=== PATIENT | female | born 1995 | race Caucasian/White ===

== ENCOUNTER 2023-02-22 20:54 | Emergency (ER) | payer MEDICAID ==
[~2023-02-22] VITALS: Ht 170.2 cm; Wt 115.9 kg
[2023-02-22 21:04] VITALS: BP 148/70
--- NOTE | 2023-02-22 21:46 | NUR ---
lab was drawing pt and she had a vasovagal response. Pale, taken to room 4
[2023-02-22 22:27] LABS: ALANINE AMINOTRANSFERASE 25 U/L (12-78); ALBUMIN 3.2 G/DL (3.4-5.0); ALBUMIN/GLOBULIN RATIO 0.8 (1.1-1.5); ALKALINE PHOSPHATASE 58 IU/L (46-116); ANION GAP 8 (8-16); ASPARTATE AMINO TRANSFERASE 21 U/L (10-37); BILIRUBIN,TOTAL 0.3 MG/DL (0.1-1.0); BLOOD UREA NITROGEN 11 MG/DL (7-18); BUN/CREATININE RATIO 10.8 (10.0-20.0); CALCIUM 8.6 MG/DL (8.5-10.1); CHLORIDE 100 MMOL/L (99-107); CREATININE 1.02 MG/DL (0.40-0.90); GLUCOSE 109 MG/DL (70-104); POTASSIUM 3.9 MMOL/L (3.5-5.1); SODIUM 134 MMOL/L (135-145); TOTAL CARBON DIOXIDE 25.8 MMOL/L (24-32); TOTAL PROTEIN 7.4 G/DL (6.4-8.2); eGFR 65 ML/MIN
[2023-02-22] MEDS ORDERED: normal saline 1000ml 1,000 ML IV ONE (22:35)
[2023-02-22 22:37] LABS: BASOPHILS % (AUTO) 0.3 % (0-1); EOSINOPHILS % (AUTO) 0 % (0-6); LYMPHOCYTES # (AUTO) 1.1 X10'3 (1.1-4.8); LYMPHOCYTES % (AUTO) 11.9 % (21-51); MEAN CORPUSCULAR HEMOGLOBIN 28.4 PG (27.0-31.0); MEAN CORPUSCULAR HGB CONC 33.3 g/dL (33.0-36.5); MEAN CORPUSCULAR VOLUME 85.4 FL (78-98); MEAN PLATELET VOLUME 8.6 FL (7.4-10.4); MONOCYTES # (AUTO) 0.9 X10'3 (0-0.9); MONOCYTES % (AUTO) 9.7 % (2-12); NEUTROPHILS # (AUTO) 7.2 X10'3 (1.8-7.7); NEUTROPHILS % (AUTO) 78.1 % (42-75); PLATELET COUNT 165 X10'3 (140-440); RED BLOOD COUNT 4.22 X10'6 (4.20-5.60); RED CELL DISTRIBUTION WIDTH 13.3 % (11.5-14.5); WHITE BLOOD COUNT 9.2 X10'3 (4.5-11.0)
[2023-02-22 23:03] LABS: BETA HCG,QUANTITATIVE < 1.0 mIU/ml
[2023-02-22] MEDS ORDERED: acetaminophen 325mg tablet PO ONE (23:05)
[2023-02-22] MEDS ORDERED: ketorolac trometh. 30mg/ml inj. IV ONE (23:05)
[2023-02-22] MEDS ORDERED: albuterol 2.5 MG/3 ML nebule NEB ONE (23:05)
[2023-02-22] MEDS ORDERED: ondansetron/PF 4mg/2ml inj IV ONE (23:10)
[2023-02-22 23:24] LABS: LIPASE 80 U/L (73-393)
[2023-02-22] MEDS ORDERED: AZIT-83 PO (23:53)
[2023-02-22] MEDS ORDERED: azithromycin 250mg tablet PO ONE (23:55)
== END 2023-02-23 00:50 | disposition home or self-care (01) ==
LOC: ER 20:55
DX: J18.9 Pneumonia, unspecified organism (principal); J45.909 Unspecified asthma, uncomplicated; Z79.899 Other long term (current) drug therapy
CPT/HCPCS: 36415; 71045; 80053; 83605; 83690; 84145; 84484; 84702; 85025; 87040; 94640; 96361; 96374; 96375; 99285; J1885; J2405; J7030; 93005; 94760

== ENCOUNTER 2024-08-30 23:01 | Emergency (ER) | payer MEDICAID, OTHER ==
[~2024-08-30] VITALS: Ht 170.2 cm; Wt 110.4 kg
[2024-08-30 23:10] VITALS: BP 141/83; PULSE 95; TEMP 98.3; O2SAT 100
[2024-08-30 23:28] LABS: BILIRUBIN,URINE NEGATIVE (Neg); CLARITY,URINE CLOUDY (Clear); COLOR,URINE YELLOW (Yellow); GLUCOSE, URINE NEGATIVE (Neg); KETONES,URINE NEGATIVE (Neg); LEUKOCYTE ESTERASE ,URINE SMALL (Neg); NITRITES, URINE POSITIVE (Neg); OCCULT BLOOD,URINE LARGE (Neg); PROTEIN,URINE >=300 mg/dl (Neg); URINE HCG NEGATIVE (NEG); UROBILINOGEN,URINE 0.2 E.U/dL (0.2-1.0)
[2024-08-30 23:31] LABS: UA COLLECTION TYPE CLN CATCH MIDSTREAM
[2024-08-30 23:41] LABS: BACTERIA,URINE 4+ /HPF (Neg); MUCUS STRANDS FEW /LPF (Neg); RBC,URINE 50-100 /HPF (0-2); SQUAMOUS EPITHELIAL CELL,UR FEW /LPF (FEW); WBC,URINE TNTC /HPF (0-4)
[2024-08-30 23:42] LABS: WBC CLUMPS,URINE MODERATE /HPF (NEGATIVE)
[2024-08-31] MEDS: CefTRIAXone 1000mg IM Kit (w/lidocaine diluent) IM ONE (00:22)
[2024-08-31] MEDS: ketorolac trometh 30MG/ML vial 30 MG/ML VIAL IM ONE (00:23)
[2024-08-31] MEDS ORDERED: CEFD300C3 PO (00:32)
[2024-08-31 00:46] VITALS: RESP 18
== END 2024-08-31 00:47 | disposition home or self-care (01) ==
LOC: ER 23:01
DX: N39.0 Urinary tract infection, site not specified (principal); J45.909 Unspecified asthma, uncomplicated; Z98.890 Other specified postprocedural states
CPT/HCPCS: 81001; 81025; 87088; 87186; 96372; 99284; J0696; J1885; 87077

== ENCOUNTER 2025-03-15 09:36 | Emergency (ER) | payer MEDICAID ==
[~2025-03-15] VITALS: Ht 170.2 cm; Wt 112.8 kg
[2025-03-15 09:45] VITALS: BP 129/79; PULSE 89; RESP 18; O2SAT 97
--- NOTE | 2025-03-15 11:20 | Physician Documentation ---
History of Present Illness ~ Chief Complaint: Ear Pain Stated Complaint: EAR ACHE Time Seen by MD: 10:36 Primary Medical Doctor: DORCAS PRUITT HPI Patient presents with a complaint of cold cough congestion increased pain and swelling in her left ear. She has had a subjective fever he has any drainage denies any hearing changes Medication Reconciliation Allergies: Coded Allergies: No Known Allergies (Unverified , 02/22/23) Scheduled Amoxicillin Trihydrate* (Amoxicillin*), 2 CAP PO Q12H Neomy Sulf/Polymyx B Sulf/Hc (Cortisporin Otic Suspension*), 4 DROP LEFT EAR Q8H Past Medical History Past Medical History: Asthma Past Surgical History: Review of Systems All Other Systems at this time: Reviewed and Negative ROS As stated above in the HPI, otherwise all systems are reviewed and negative. Physical Exam Vital Signs: Temperature: 98.0, Source: Temporal, Heart Rate: 89, Respiratory Rate: 18, BP: 129/79, Pulse Oximetry: 97, Weight: 112.850 Oxygen Flow Rate: 0 Physical Exam General: Alert, no apparent distress. HEENT: PERRL, EOMI, no injection, moist mucous membranes. Inflamed left auditory external auditory canal Psychiatric: Normal mood and affect. Skin: Normal color, warm and dry. No edema, no ecchymosis. Progress Results/Orders Results/Orders Vital Signs 03/15/25 03/15/25 09:45 11:28 Temp 98.0 98.0 Pulse 89 Resp 18 B/P (MAP) 129/79 Pulse Ox 97 O2 Flow Rate 0 Medical Decision Making Findings treats The patient empirically for otitis media and otitis externa. Likely also suffering a viral illness. Toxic appearing does not show any signs of decompensation Ear Diff. Dx: Considerations: Include: Abrasion, Cerumen impaction, Foreign body, Otitis externa, Barotrauma, Otitis media, Perforation, Referred pain- dental, Referred pain-pharyngitis, Referred pain-sinusitis, Referred pain-TMJ syn., Tympanic Membrane Injury, Other Departure Disposition: 01 HOME / SELF CARE / HOMELESS Impression: Primary Impression: Otitis Additional Impressions: Otitis externa Otitis media Discharge Instructions: Otitis Media, Adult Referrals: NO PRIMARY CARE PROVIDER (PCP) Prescriptions Neomy Sulf/Polymyx B Sulf/Hc (Cortisporin Otic Suspension*) 3.5 Mg/Ml-10,000 Unit/Ml-1 % Drops.susp 4 DROP LEFT EAR Q8H for 5 Days, #10 ML Prov: MILLER PALMER GROUP LEADER 03/15/25 Amoxicillin Trihydrate* (Amoxicillin*) 500 Mg Capsule 2 CAP PO Q12H for 10 Days, #40 CAP Prov: MILLER PALMER GROUP LEADER 03/15/25 Education Educated: Patient Educated regarding: diagnosis Signature Scribe Signature: Y Attestation: The note accurately reflects work and decisions made by me.Miller Palmer - GROUP LEADER 03/15/25 15:30 MILLER PALMER NP March 15, 2025 11:20
[2025-03-15] MEDS ORDERED: NEOM10DR45 LEFT EAR (11:23)
[2025-03-15] MEDS ORDERED: AMOX500C2 PO (11:23)
[2025-03-15 11:28] VITALS: TEMP 98
== END 2025-03-15 11:30 | disposition home or self-care (01) ==
LOC: ER 09:36
DX: H66.92 Otitis media, unspecified, left ear (principal); H60.92 Unspecified otitis externa, left ear; J45.909 Unspecified asthma, uncomplicated; Z79.899 Other long term (current) drug therapy; Z98.890 Other specified postprocedural states
CPT/HCPCS: 99283